=== PATIENT | male | born 1945 | race Caucasian/White ===

== ENCOUNTER 2018-09-23 12:20 | Outpatient (CLI) | payer MEDICARE ==
[2018-09-23 13:57] LABS: Hemoglobin 13.5 g/dL (14.0-18.0); Mean Corpuscular HGB CONC 30.7 g/dL (32.0-36.0); Mean Corpuscular Hemoglobin 26.3 pg (27.0-31.0); Mean Corpuscular Volume 85.5 fL (78.0-98.0); Mean Platelet Volume 7.1 fL (7.4-10.4); Platelet Count 353 thou/uL (130-400); RBC Distribution Width 14.1 % (11.5-14.5); Red Blood Cell (RBC) Count 5.16 mill/uL (4.70-6.10); White Blood Cell (WBC) Count 9.5 thou/uL (4.8-10.8)
[2018-09-23 14:02] LABS: PTT 28.7 SEC (22.9-36.1)
[2018-09-23 14:03] LABS: Prothrombin Time 13.3 SEC (12.0-14.7)
[2018-09-23 14:11] LABS: Anion Gap 14 mmol/L (10-20); BUN (Urea Nitrogen) 13 mg/dL (8.4-25.7); Calc. Creatinine Clearance 0 mL/min (70-130); Calcium 10.1 mg/dL (7.8-10.44); Carbon Dioxide 24 mmol/L (23-31); Chloride 107 mmol/L (98-107); Estimated GFR-MDRD 74; Glucose 108 mg/dL (83-110); Potassium 4.3 mmol/L (3.5-5.1); Sodium 141 mmol/L (136-145)
[2018-09-23 14:17] LABS: Bilirubin Negative (Negative); Blood, Urine Negative (Negative); Clarity CLEAR (Clear); Glucose, Urine (Dipstick) Negative (Negative); Leukocyte Small (Negative); Nitrite Negative (Negative); Protein, Urine (Dipstick) Negative (Neg-Trace); Specific Gravity, Urine 1.016 (1.002-1.036); Urobilinogen 0.2 mg/dL (0.2-1.0)
[2018-09-23 14:21] LABS: Bacteria/HPF None Seen HPF (None Seen); Hyaline Casts/LPF 0-3 HYALINE CAST LPF (0-3 Hyaline); Pathc Cast-AUWi Flag 0.13 (0-2.49); RBC/HPF 0-3 HPF (0-3); Squamous Epithelial 0-3 HPF (0-3); WBC/HPF 21-50 HPF (0-3)
--- NOTE | 2018-09-23 23:23 | EKG ---
Test Reason : Blood Pressure : / mmHG Vent. Rate : 053 BPM Atrial Rate : 053 BPM P-R Int : 152 ms QRS Dur : 088 ms QT Int : 422 ms P-R-T Axes : 035 016 014 degrees QTc Int : 395 ms Sinus bradycardia Minimal voltage criteria for LVH, may be normal variant Borderline ECG When compared with ECG of 20-JAN-2018 10:08, Minimal criteria for for LVH now present. Confirmed by CELSO RIVERA ([id number]) on 09/23/2018 11:22:35 PM Referred By: MARTIR Confirmed By:CELSO RIVERA
== END 2018-09-23 12:21 | disposition home or self-care (01) ==
LOC: LABBT 12:20
PROVIDERS: ATTEND Urology
DX: Z01.818 Encounter for other preprocedural examination (principal); N35.919 Unspecified urethral stricture, male, unspecified site
CPT/HCPCS: 80048; 81001; 85027; 85610; 85730; 87077; 87086; 87186; 93005; 93010

== ENCOUNTER 2018-10-01 14:23 | Outpatient (CLI) | payer MEDICARE | END 2018-10-01 14:24 | disposition home or self-care (01) | LOC: LABBT 14:23 | PROVIDERS: ATTEND Urology | DX: Z01.812 Encounter for preprocedural laboratory examination (principal); N35.919 Unspecified urethral stricture, male, unspecified site | CPT/HCPCS: 86850; 86900; 86901; 88305 ==

== ENCOUNTER 2018-10-06 05:45 | Observation (INO) | payer MEDICARE ==
[2018-09-23 12:46] VITALS: BMI 29.4
[2018-10-06] MEDS ORDERED: Levofloxacin 500 mg/D5W 100 ml Premix Bag ONE (06:20)
[2018-10-06] MEDS ORDERED: Iothalamate Meglumine 60% 50 ML VIAL FS ONE (06:31)
[2018-10-06] MEDS ORDERED: Fentanyl 100 MCG/2 ML VIAL ONE (06:35)
[2018-10-06] MEDS ORDERED: Promethazine HCl 25 MG/ML VIAL SLOW IVP PRN (08:22)
[2018-10-06] MEDS ORDERED: Morphine Sulfate 2 MG/ML SYRINGE SLOW IVP PRN (08:22)
[2018-10-06] MEDS ORDERED: Promethazine HCl 25 MG/ML VIAL IM PRN (08:22)
[2018-10-06] MEDS ORDERED: Phenazopyridine HCl 97.5 MG TABLET PO PRN (10:08)
[2018-10-06] MEDS ORDERED: Morphine 4 MG/ML VIAL SLOW IVP PRN (10:08)
[2018-10-06] MEDS ORDERED: HYDROcodone/Acetaminophen 5/325 mg Tablet PO PRN ×2 (10:08→10:30)
[2018-10-06] MEDS ORDERED: Oxybutynin 5 MG TAB PO PRN (10:08)
[2018-10-06] MEDS ORDERED: Ondansetron PF 4 MG/2 ML Vial IVP PRN (10:08)
[2018-10-06] MEDS ORDERED: Dextrose 5% in Water 1,000 ML IV PRN (10:08)
[2018-10-06] MEDS ORDERED: Dextrose 50% Abboject 50 ML SYRINGE SLOW IVP PRN (10:08)
[2018-10-06] MEDS ORDERED: Insulin Regular 300 UNITS/3 ML VIAL SC PRN (10:08)
[2018-10-06] MEDS ORDERED: Zolpidem Tartrate 5 MG TAB PO PRN (10:08)
[2018-10-06] MEDS ORDERED: hydrALAZINE 20 MG/ML VIAL SLOW IVP PRN ×2 (10:08→10:30)
[2018-10-06] MEDS ORDERED: Bisacodyl 10 MG SUPP PR PRN (10:30)
[2018-10-06] MEDS ORDERED: diphenhydrAMINE 50 MG/ML VIAL IVP PRN (10:30)
[2018-10-06] MEDS ORDERED: Docusate 100 MG CAP PO PRN (10:30)
[2018-10-06] MEDS ORDERED: Mag-Al 1200 mg/1200 mg/30 ML UDCUP PO PRN (10:30)
[2018-10-06] MEDS: Sodium Chloride 0.9% 1,000 ML IV SCH ×2 (10:40→23:30)
[2018-10-06] MEDS ORDERED: Morphine 2 MG/ML SYRINGE SLOW IVP PRN (10:43)
[2018-10-06] MEDS ORDERED: Glycopyrrolate 0.2 MG/ML 5 ML SYRINGE ONE (13:33)
[2018-10-06] MEDS ORDERED: Rocuronium Bromide 10 MG/ML (10ML VIAL) ONE (13:33)
[2018-10-06] MEDS ORDERED: Metoclopramide HCl 10 MG/2 ML VIAL ONE (13:33)
[2018-10-06] MEDS ORDERED: PROPOFOL 200 MG/20 ML VIAL ONE (13:33)
[2018-10-06] MEDS ORDERED: PHENYLEPHRINE-NS 100 MCG/ML 10 ML SYRINGE ONE (13:33)
[2018-10-06] MEDS ORDERED: Lidocaine 1% PF 5 ML VIAL ONE (13:33)
[2018-10-06] MEDS ORDERED: Ondansetron PF 4 MG/2 ML Vial ONE (13:33)
[2018-10-06] MEDS: Docusate 100 MG CAP PO SCH ×2 (14:06→20:17)
[2018-10-06] MEDS: Famotidine/PF 20 mg/2ml Vial SLOW IVP SCH ×2 (14:07→20:16)
--- NOTE | 2018-10-06 17:02 | OP ---
DATE OF PROCEDURE: 10/06/2018 PREOPERATIVE DIAGNOSES: 1. A 73-year-old male with history of recurrent urethral stricture. 2. Regrowth of left lateral/apical adenoma status post transurethral resection of prostate. POSTOPERATIVE DIAGNOSES: 1. A 73-year-old male with history of recurrent urethral stricture. 2. Regrowth of left lateral/apical adenoma status post transurethral resection of prostate. PROCEDURES PERFORMED: 1. Cystoscopy. 2. Urethral stricture dilatation. 3. Direct vision internal urethrotomy. 4. Transurethral resection of prostate. ANESTHESIA: General. COMPLICATIONS: None apparent. DISPOSITION: To recovery room in stable condition. SPECIMEN: TUR of prostate. INTRAOPERATIVE FINDINGS: 1. As previous seen on diagnostic flexible cystoscopy, multi-annular penile urethral stricture 14/16-Finnish caliber, bulbar urethral stricture about 8- to 10-Finnish caliber. 2. TUR defect with no evidence of bladder neck contracture, obstructing left lateral apical adenoma. Right lateral lobe with good TUR defect. 3. Bladder grossly unremarkable. INDICATIONS FOR PROCEDURE AND HISTORY: Mr. Alberto is a 73-year-old male with history of recurrent urethral stricture, he previously underwent DVIU with transurethral resection of prostate a few years ago. He underwent restaging cystoscopy, demonstrating recurrent urethral stricture, with a regrowth adenoma component of the left lateral wall. He was advised regarding urethral stricture dilatation, DVIU, TURP of the lateral regrowth. Risks and complications of the procedure were reviewed as well as alternatives of the procedure including urethroplasty, which he declined. Risks and complication including, but not limited to, bleeding, pain, infection, injury to adjacent organs, urosepsis, recurrent nature of stricture disease, clot retention, PE, DVT, perioperative morbidity and mortality was reviewed. All questions were answered to his satisfaction. He desired to proceed. DESCRIPTION OF PROCEDURE: After an informed consent was signed, the patient was taken to the operating room, placed in a dorsal lithotomy position with the genital area prepped and draped in the usual surgical sterile fashion. Bilateral BECK hose, SCDs, and broad-spectrum antibiotics were provided. We used a 17-Finnish cystoscope initially for diagnostic cystoscopy. I was able to pass the 17-Finnish scope without any significant issues along his penile urethral stricture, which demonstrated multi annular narrowing. There were about 14- to 16-Finnish caliber. I was able to easily maneuver past these. At the level of the bulbar urethra, the bulbar urethral stricture did demonstrate approximately 8- to 10-Finnish caliber. An open-ended catheter was passed to the level of the bladder and a 0.035 Sensor wire left in situ in the bladder. We gently negotiated the rigid cystoscope along guidewire assist to the level of the bladder. Subsequently, we re-staged the urethra, demonstrating good TUR defect of the bladder neck and the right lateral wall, demonstrated no evidence of recurrent obstructing nature. At the left lateral/apical component, there was an obstructing regrowth. This was not that big in size; however, warrants treatment. At this time, we transitioned to a 22 and 25-Finnish cystoscope, passively dilating the bulbar urethral stricture. I subsequently was able to pass a 26-Finnish resectoscope with a visual obturator with ease, further passively dilating his urethral stricture, especially the bulbar component. Using a Gyrus bipolar , we performed a transurethral resection of the left lateral lobe. I resected this flush to the rest of his TUR defect, making a nice floor. There was a good TUR defect already except the left lateral lobe, which was resected uneventfully. All prostatic chips were evacuated with newMentor evacuator. At this time, I re-staged his urethral stricture. The bulbar urethral stricture was dilated. I did not DVIU this as it is at the bulbar level. The residual mid to distal penile urethral stricture was addressed with a direct vision internal urethrotomy cold knife. The annular rings were released with the cold knife. The penile urethral strictures were wide caliber about 16-Finnish. He tolerated the procedure well. Good hemostasis of the TUR defect was noted. I did not require guidewire assist. A 22-Finnish 3-way Whipple was able to be passed without significant issues. A 30 mL of sterile water insufflated without significant issues, attached to CBI low rate demonstrating clear output. He will be observed overnight with a CBI, anticipate he will be able to be discharged with a catheter to a leg bag. Job ID: [id number] [facility]
[2018-10-06] MEDS: Metoprolol Tartrate 25 MG TAB PO SCH (20:17)
[2018-10-06] MEDS: Acyclovir 400 mg Tablet PO SCH (20:23)
[2018-10-06] MEDS ORDERED: Atorvastatin Calcium 20 MG TAB PO SCH (21:00)
[2018-10-07] MEDS: Metoprolol Tartrate 25 MG TAB PO SCH (07:45)
[2018-10-07] MEDS: Acyclovir 400 mg Tablet PO SCH (07:46)
[2018-10-07] MEDS: Docusate 100 MG CAP PO SCH (07:46)
[2018-10-07] MEDS: Famotidine/PF 20 mg/2ml Vial SLOW IVP SCH (07:48)
[2018-10-07 08:23] VITALS: BP 144/82; TEMP 98.9
[2018-10-07 08:52] LABS: #Basophils 0.1 thou/uL (0.0-0.2); #Eosinphils 0.4 thou/uL (0.0-0.7); #Lymphocytes 1.6 thou/uL (1.20-3.40); #Monocytes 0.6 thou/uL (0.11-0.59); #Neutrophils 4.7 thou/uL (1.40-6.50); %Basophils 1.4 % (0.0-1.0); %Eosinophils 5.1 % (0.0-10.0); %Lymphocytes 21.8 % (21.0-51.0); %Monocytes 8.4 % (0.0-10.0); %Neutrophils 63.4 % (42.0-75.0); Hemoglobin 12.8 g/dL (14.0-18.0); Mean Corpuscular Hemoglobin 25.7 pg (27.0-31.0); Mean Corpuscular Volume 85.8 fL (78.0-98.0); Mean Platelet Volume 6.9 fL (7.4-10.4); Platelet Count 344 thou/uL (130-400); RBC Distribution Width 13.8 % (11.5-14.5); Red Blood Cell (RBC) Count 4.98 mill/uL (4.70-6.10); White Blood Cell (WBC) Count 7.4 thou/uL (4.8-10.8)
[2018-10-07 08:56] LABS: Anion Gap 11 mmol/L (10-20); BUN (Urea Nitrogen) 12 mg/dL (8.4-25.7); Calc. Creatinine Clearance 85 mL/min (70-130); Calcium 9.1 mg/dL (7.8-10.44); Carbon Dioxide 26 mmol/L (23-31); Chloride 107 mmol/L (98-107); Estimated GFR-MDRD 70; Glucose 118 mg/dL (83-110); Potassium 4.1 mmol/L (3.5-5.1); Sodium 140 mmol/L (136-145)
[2018-10-07] MEDS ORDERED: MULTIVIT WITH IRON MINERALS PO SCH (09:00)
[2018-10-07] MEDS ORDERED: Ramipril 5 MG CAP PO SCH (09:00)
[2018-10-07] MEDS ORDERED: Dutasteride 0.5 MG CAP PO SCH (09:00)
[2018-10-07] MEDS ORDERED: Pioglitazone HCl 45 MG TAB PO SCH (09:00)
[2018-10-07] MEDS ORDERED: Tamsulosin HCl 0.4 MG CAP PO SCH (09:00)
[2018-10-07] MEDS ORDERED: prednisoLONE 1% Ophth Susp 5 ml Bottle R EYE SCH (09:00)
[2018-10-07] MEDS ORDERED: Multivitamin W/ Minerals 1 TAB PO SCH (09:00)
--- NOTE | 2018-10-08 04:26 | DIS ---
DATE OF ADMISSION: 10/06/2018 DATE OF DISCHARGE: 10/07/2018 PROCEDURES: 1. Cystoscopy. 2. TURP. 3. DVIU. 4. Urethral stricture dilatation. CONDITION: Stable. DISPOSITION: Home with self-care, Whipple catheter to gravity. FOLLOWUP: followup appointment next Saturday for Whipple catheter removal. DISCHARGE MEDICATIONS: The patient may resume his home medications. He is discharged with ciprofloxacin for 7 days and Colace, [place] 5/325, #30. ACTIVITY: No heavy lifting, strenuous activity, no baths. May shower. Whipple catheter leg bag instructions provided. Job ID: [id number]
== END 2018-10-07 10:25 | disposition home or self-care (01) ==
LOC: SDC 05:45 → SURG A 09:29
PROVIDERS: ADMIT Urology; ATTEND Urology
PROC: 0VT08ZZ Resection of Prostate, Via Natural or Artificial Opening Endoscopic (ICD-10-PCS; principal; 2018-10-06)
PROC: 0T7D8ZZ Dilation of Urethra, Via Natural or Artificial Opening Endoscopic (ICD-10-PCS; 2018-10-06)
PROC: 0TQD8ZZ Repair Urethra, Via Natural or Artificial Opening Endoscopic (ICD-10-PCS; 2018-10-06)
DX: D29.1 Benign neoplasm of prostate (principal); N35.912 Unspecified bulbous urethral stricture, male; N35.819 Other urethral stricture, male, unspecified site; E11.9 Type 2 diabetes mellitus without complications; E78.00 Pure hypercholesterolemia, unspecified; M19.90 Unspecified osteoarthritis, unspecified site; N39.41 Urge incontinence; R35.0 Frequency of micturition; R39.14 Feeling of incomplete bladder emptying; K21.9 Gastro-esophageal reflux disease without esophagitis; Z79.82 Long term (current) use of aspirin; Z79.899 Other long term (current) drug therapy; Z88.0 Allergy status to penicillin; Z88.8 Allergy status to other drugs, medicaments and biological substances; Z98.890 Other specified postprocedural states; Z87.891 Personal history of nicotine dependence
CPT/HCPCS: 52276; 52630; 80048; 82962 ×2; 85025; 96361 ×2; 96365; 96375; C1758; C1769; G0378; 36415; 36416; J0131; J1956; J2001; J2405; J2704; J2765; J3010; Q9961; S0028

== ENCOUNTER 2021-04-25 12:43 | Outpatient (CLI) | payer MEDICARE | END 2021-04-25 12:44 | disposition home or self-care (01) | LOC: MRI 12:43 | PROVIDERS: ATTEND Ophthalmology | DX: H47.20 Unspecified optic atrophy (principal); I67.82 Cerebral ischemia; I25.2 Old myocardial infarction | CPT/HCPCS: 70553 ==